=== PATIENT | female | born 1995 | race African-American/Black ===

== ENCOUNTER 2022-04-24 14:29 | Emergency (ER) | payer BC ==
[~2022-04-24] VITALS: Ht 167.6 cm; Wt 65.8 kg
--- NOTE | 2022-04-24 14:47 | NUR ---
bibr 79 c/o allergic reaction from eating peanuts. denies mouth and tongue swelling.
--- NOTE | 2022-04-24 14:51 | NUR ---
at bed side for eval
[2022-04-24] MEDS ORDERED: IV NS 0.9% 1,000 ML BAG IV ONE (15:00)
[2022-04-24] MEDS ORDERED: FAMOTIDINE/PF INJ 20 MG/2 ML VIAL IV ONE ×2 (15:00→15:29)
[2022-04-24] MEDS ORDERED: diphenhydrAMINE HCL 50 MG/ML VIAL IV ONE (15:00)
[2022-04-24] MEDS ORDERED: methylPREDNISolone SOD SUCC 125 MG/2ML VIAL IV ONE (15:00)
[2022-04-24] MEDS ORDERED: EPIN0.3P3 IM ×2 (15:25→17:02)
[2022-04-24] MEDS ORDERED: FAMO-131 PO ×2 (15:25→17:02)
[2022-04-24] MEDS ORDERED: DIPH25CA83 PO ×2 (15:25→17:02)
[2022-04-24] MEDS ORDERED: PRED20TA PO ×2 (15:25→17:02)
[2022-04-24] MEDS ORDERED: methylPREDNISolone SOD SUCC 125 MG/2ML VIAL ONE (15:28)
[2022-04-24] MEDS ORDERED: diphenhydrAMINE HCL 50 MG/ML VIAL ONE (15:28)
--- NOTE | 2022-04-24 17:22 | NUR ---
IV removed. Catheter intact and site benign. Pressure and 4x4 applied to site. No bleeding noted.
[2022-04-24 17:23] VITALS: BP 139/81
--- NOTE | 2022-04-24 17:23 | NUR ---
Patient discharged to home in stable condition. Written and verbal after care instructions given. Patient verbalizes understanding of instruction.
== END 2022-04-24 17:25 | disposition home or self-care (01) ==
LOC: ER 14:31
DX: T78.1XXA Other adverse food reactions, not elsewhere classified, initial encounter (principal); J45.909 Unspecified asthma, uncomplicated; Z79.899 Other long term (current) drug therapy; Z91.010 Allergy to peanuts; X58.XXXA Exposure to other specified factors, initial encounter
CPT/HCPCS: 99284; 96374; 96375; 96361; J1200; J3490; J2930; J7030